=== PATIENT | female | born 1995 | race Caucasian/White ===

== ENCOUNTER 2019-12-22 15:13 | Emergency (ER) | payer SELFPAY ==
[2019-12-22] MEDS ORDERED: Take Home: Azithromycin 250 MG, 2 Tab Pack PO ONE (15:36)
--- NOTE | 2019-12-22 15:41 | EDM.PDOC ---
ED HPI GENERAL MEDICAL PROBLEM - General Chief Complaint: General Stated Complaint: SICK FOR FEW DAYS Time Seen by Provider: 12/22/19 15:30 Source of Information: Reports: Patient History Limitations: Reports: No Limitations - History of Present Illness INITIAL COMMENTS - FREE TEXT/NARRATIVE: Patient presents today with a 4 day history of upper respiratory symptoms. States chest has been tight, cough dry. Notes increased sinus congestion and postnasal drainage. Has right ear pain. Has had on and off fevers since . Denies shortness of breath. NO wheezing. Has been taking dayquil and nyquil for the last 3 days with minimal symptom relief. Onset: Gradual Duration: Day(s): Location: Reports: Head, Chest Quality: Reports: Ache Severity: Mild Improves with: Reports: Medication Associated Symptoms: Reports: Cough, Fever/Chills, Headaches. Denies: Confusion , Chest Pain, cough w sputum, Nausea/Vomiting, Shortness of Breath Treatments PATROL INSPECTOR: Reports: Other Medication(s) Other Treatments PATROL INSPECTOR: dayquil, nyquil - Related Data Allergies Allergy/AdvReac Type Severity Reaction Status Date / Time codeine Allergy Cannot Verified 12/22/19 15:37 Remember Penicillins Allergy Cannot Verified 12/22/19 15:37 Remember promethazine [From Phenergan] Allergy Cannot Verified 12/22/19 15:37 Remember Sulfa (Sulfonamide Allergy Cannot Verified 12/22/19 15:37 Antibiotics) Remember Home Meds: Home Meds . [No Known Home Meds] 12/22/19 [History] Past Medical History - Past Health History Medical/Surgical History: Denies Medical/Surgical History Social & Family History - Tobacco Use Smoking Status *Q: Never Smoker ED ROS GENERAL - Review of Systems Review Of Systems: See Below Constitutional: Reports: Fever, Chills, Malaise, Weakness, Fatigue. Denies: Decreased Appetite HEENT: Reports: Ear Pain, Rhinitis, Sinus Problem. Denies: Throat Pain Respiratory: Reports: Cough. Denies: Shortness of Breath, Sputum Cardiovascular: Reports: No Symptoms Endocrine: Reports: Fatigue GI/Abdominal: Denies: Abdominal Pain, Nausea, Vomiting : Reports: No Symptoms Musculoskeletal: Reports: No Symptoms Skin: Reports: No Symptoms Neurological: Reports: Headache ED EXAM, GENERAL - Physical Exam Exam: See Below Exam Limited By: No Limitations General Appearance: Alert, WD/WN, No Apparent Distress Ears: Other (Right TM red and bulging) Nose: Normal Inspection, Normal Mucosa, Nasal Drainage (mucopurulent drainage noted) Throat/Mouth: Normal Inspection, Other (posterior pharynx is pink with thick postnasal drainage noted) Head: Normocephalic Neck: Normal Inspection, Supple, Non-Tender Respiratory/Chest: No Respiratory Distress, Lungs Clear, Normal Breath Sounds Cardiovascular: Regular Rate, Rhythm Extremities: Normal Inspection, No Pedal Edema Neurological: Alert, Oriented Skin Exam: Warm, Dry Course - Vital Signs Last Recorded V/S: Last Vital Signs Temp 98.3 F 12/22/19 15:34 Pulse 96 12/22/19 15:34 Resp 18 12/22/19 15:34 BP 133/69 12/22/19 15:34 Pulse Ox 96 12/22/19 15:34 - Orders/Labs/Meds Meds: Medications Discontinued Medications Generic Name Dose Route Start Last Admin Trade Name Freq PRN Reason Stop Dose Admin Azithromycin 1 packet 12/22/19 15:36 12/22/19 15:48 Take Home: Azithromycin 250 Mg, 2 Tab Pack PO 12/22/19 15:37 1 packet ONETIME ONE Administration Departure - Departure Time of Disposition: 15:39 Disposition: Home, Self-Care 01 Condition: Good Clinical Impression: Right otitis media - Discharge Information *PRESCRIPTION DRUG MONITORING PROGRAM REVIEWED*: No *COPY OF PRESCRIPTION DRUG MONITORING REPORT IN PATIENT [place]: No Instructions: Otitis Media, Adult Forms: ED Department Discharge Additional Instructions: 1. Rest 2. Push fluids 3. Tylenol or ibuprofen for fever or discomfort 4. Zithromax 250 mg daily (receive first dose in ER) 5. Follow up with primary care provider if symptoms persist. Sepsis Event Note - Evaluation Sepsis Screening Result: No Definite Risk - Focused Exam Vital Signs: Vital Signs Temp Pulse Resp BP Pulse Ox 12/22/19 15:34 98.3 F 96 18 133/69 96 Date Exam was Performed: 12/22/19 Time Exam was Performed: 15:51
[2019-12-22] MEDS ORDERED: Azithromycin 250 MG Tab ONE (15:59)
== END 2019-12-22 16:00 | disposition home or self-care (01) ==
LOC: VM.ED 15:13
DX: H66.91 Otitis media, unspecified, right ear (principal); Z88.5 Allergy status to narcotic agent; Z88.0 Allergy status to penicillin; Z88.2 Allergy status to sulfonamides; Z88.8 Allergy status to other drugs, medicaments and biological substances
CPT/HCPCS: 99283; 99283-GF; A9270-GY